=== PATIENT | female | born 1995 | race Hispanic/Latino ===

== ENCOUNTER 2021-12-11 23:25 | Emergency (ER) | payer BC, SELFPAY ==
[2021-12-12 00:08] LABS: #Eosinphils 0.1 10x3/uL (0.0-0.5); #Monocytes 0.7 10x3/uL (0.0-1.1); #Neutrophils 5.2 10x3/uL (1.5-8.4); %Basophils 0.4 % (0.0-2.0); %Eosinophils 1.2 % (0.0-6.0); %Monocytes 8.9 % (0.0-10.0); %Neutrophils 63.3 % (40.0-75.0); Hemoglobin 11.6 g/dL (12.0-15.5); Mean Corpuscular Hemoglobin 29.9 pg (27.0-33.0); Mean Corpuscular Volume 90.5 fl (81.6-98.3); Mean Platelet Volume 10.1 fl (7.4-10.4); Platelet Count 258 10x3/uL (150-450); RBC Distribution Width 12.6 % (11.5-14.5); Red Blood Cell (RBC) Count 3.88 10x6/uL (3.90-5.03); White Blood Cell (WBC) Count 8.3 10x3/uL (3.5-10.5)
[2021-12-12 00:13] LABS: ALT (SGPT) 8 U/L (8-55); AST (SGOT) 15 U/L (5-34); Albumin 4.3 g/dL (3.5-5.0); Alkaline Phosphatase 45 U/L (40-110); Anion Gap 11 mmol/L (10-20); BUN (Urea Nitrogen) 10 mg/dL (7.0-18.7); Bilirubin, Total 0.2 mg/dL (0.2-1.2); Calc. Creatinine Clearance 0 mL/min (70-130); Carbon Dioxide 25 mmol/L (22-29); Chloride 105 mmol/L (98-107); Estimated GFR 123; Globulin 3.1 g/dL (2.4-3.5); Glucose 65 mg/dL (70-105); Protein, Total 7.4 g/dL (6.0-8.3); Sodium 137 mmol/L (136-145)
[2021-12-12 01:37] LABS: Bilirubin Neg (Negative); Blood, Urine Negative (Negative); Clarity Clear (Clear); Glucose, Urine (Dipstick) Normal (Negative); Ketone, Urine Negative (Negative); Leukocyte 25 (Negative); Nitrite Negative (Negative); Protein, Urine (Dipstick) Negative (Neg-Trace); Urobilinogen Normal mg/dL (Less than 2)
[2021-12-12 01:57] LABS: Bacteria/HPF Rare-Few HPF (None Seen); RBC/HPF 0-3 HPF (0-3)
== END 2021-12-12 03:24 | disposition home or self-care (01) ==
LOC: CSHERS 23:25
DX: O99.891 Other specified diseases and conditions complicating pregnancy (principal); R10.2 Pelvic and perineal pain; Z3A.01 Less than 8 weeks gestation of pregnancy
CPT/HCPCS: 76856; 80053; 81003; 81015; 84702; 85025

== ENCOUNTER 2022-07-06 10:14 | Inpatient (IN) | payer BC ==
[2022-07-06] MEDS ORDERED: Penicillin G Potassium 5 MILL.UNITS VIAL ONE (11:30)
[2022-07-06] MEDS ORDERED: Carboprost 250 MCG/ML AMP IM PRN (11:36)
[2022-07-06] MEDS ORDERED: hydrALAZINE 20 MG/ML VIAL SLOW IVP PRN (11:36)
[2022-07-06] MEDS ORDERED: Butorphanol Tartrate 1 MG/ML VIAL SLOW IVP PRN (11:36)
[2022-07-06] MEDS ORDERED: HYDROcodone/Acetaminophen 5/325 mg Tablet PO PRN ×2 (11:36)
[2022-07-06] MEDS ORDERED: Misoprostol 200 MCG TAB PR PRN (11:36)
[2022-07-06] MEDS ORDERED: Diphenoxylate HCl/Atropine Tablet PO PRN ×2 (11:36)
[2022-07-06] MEDS ORDERED: Methylergonovine 0.2 MG/ML VIAL IM PRN (11:36)
[2022-07-06] MEDS ORDERED: Ondansetron PF 4 MG/2 ML Vial IVP PRN ×2 (11:36→14:31)
[2022-07-06] MEDS ORDERED: Tranexamic Acid 1,000 MG/10 ML VIAL IVP PRN (11:36)
[2022-07-06] MEDS ORDERED: Lidocaine 1% (PF) 30 ML VIAL SC PRN (11:36)
[2022-07-06] MEDS ORDERED: Promethazine HCl 25 MG/ML VIAL IM PRN ×2 (11:36→14:31)
[2022-07-06] MEDS ORDERED: Ibuprofen 800 MG TAB PO PRN (11:36)
[2022-07-06] MEDS ORDERED: Docusate 100 MG CAP PO PRN (11:36)
[2022-07-06] MEDS ORDERED: Acetaminophen 500 MG TAB PO PRN (11:36)
[2022-07-06] MEDS ORDERED: Penicillin G Potassium 5 MILL.UNITS in Sodium Chloride 0.9% 100 ML IVPB SCH (11:45)
[2022-07-06] MEDS ORDERED: Lactated Ringer's 1,000 ML IV SCH (11:45)
[2022-07-06] MEDS ORDERED: NS w/ Oxytocin 30 units 500 ML IV SCH ×3 (11:45)
[2022-07-06] MEDS ORDERED: fentaNYL 50 mcg/mL 1 mL Vial SLOW IVP PRN (11:48)
[2022-07-06 12:00] LABS: Hemoglobin 10.6 g/dL (12.0-15.5); Mean Corpuscular HGB CONC 31.8 g/dL (32.0-36.0); Mean Corpuscular Hemoglobin 27.6 pg (27.0-33.0); Mean Corpuscular Volume 86.7 fl (81.6-98.3); Mean Platelet Volume 10.7 fl (7.4-10.4); Platelet Count 226 10x3/uL (150-450); RBC Distribution Width 13.4 % (11.5-14.5); Red Blood Cell (RBC) Count 3.84 10x6/uL (3.90-5.03); White Blood Cell (WBC) Count 6.7 10x3/uL (3.5-10.5)
[2022-07-06 12:32] LABS: Syphilis Antibody Nonreactive (Nonreactive); Syphilis Antibody Index 0.06 S/CO (<1.00 Non-Reactive)
[2022-07-06 12:33] LABS: HBSAg Index 0.17 S/CO (0-0.99); Hep B Surf Ag - L&D Non-Reactive S/CO (NonReactive)
[2022-07-06] MEDS ORDERED: Fentanyl 2 mcg/Bup 0.1% Cadd 100 ML ONE (14:02)
[2022-07-06] MEDS ORDERED: Acetaminophen 325 MG TAB PO PRN (14:31)
[2022-07-06] MEDS ORDERED: Naloxone HCl 0.4 mg/ml Vial IVP PRN ×2 (14:31)
[2022-07-06] MEDS ORDERED: diphenhydrAMINE 50 MG/ML VIAL IVP PRN (14:31)
[2022-07-06] MEDS ORDERED: ePHEDrine Sulfate 50 MG/10 ML VIAL SLOW IVP PRN (14:31)
[2022-07-06] MEDS ORDERED: Moisturizing Cream (Eucerin) 113 GM JAR TOP PRN (14:31)
[2022-07-06] MEDS ORDERED: Lactated Ringer's 500 ML IV PRN (14:31)
[2022-07-06] MEDS ORDERED: Communication Order-Pharmacy FS SCH (14:45)
[2022-07-06] MEDS ORDERED: Fentanyl 2 mcg/Bupivacaine 0.1% Cassette 100 ML EPIDURAL SCH (14:45)
[2022-07-06] MEDS: Penicillin G 2.5 MILL.units 2.5 MILL.UNITS in Premix Bag 1 BAG IVPB SCH ×2 (16:24→20:12)
[2022-07-06] MEDS ORDERED: Bupivacaine/Epinephrine 0.25% 30 ML VIAL ONE (19:00)
[2022-07-06 20:45] VITALS: BMI 28.7
[2022-07-07] MEDS ORDERED: Promethazine HCl 25 MG/ML VIAL IM PRN (02:02)
[2022-07-07] MEDS ORDERED: Boostrix 0.5 ML (Tdap) VIAL (>/=7 yrs of age) IM ONE (02:02)
[2022-07-07] MEDS ORDERED: Preparation H Ointment 28 GM TUBE PR PRN (02:02)
[2022-07-07] MEDS ORDERED: HYDROcodone/Acetaminophen 5/325 mg Tablet PO PRN (02:02)
[2022-07-07] MEDS ORDERED: hydrALAZINE 20 MG/ML VIAL SLOW IVP PRN (02:02)
[2022-07-07] MEDS ORDERED: diphenhydrAMINE 25 MG CAP PO PRN (02:02)
[2022-07-07] MEDS ORDERED: Methylergonovine 0.2 MG TAB PO PRN (02:02)
[2022-07-07] MEDS ORDERED: Ondansetron PF 4 MG/2 ML Vial IVP PRN (02:02)
[2022-07-07] MEDS ORDERED: Lanolin Ointment 7 GM TUBE TOP PRN (02:02)
[2022-07-07] MEDS ORDERED: Misoprostol 200 MCG TAB VAG PRN (02:02)
[2022-07-07] MEDS ORDERED: Milk Of Magnesia 30 ML UDCUP PO PRN (02:02)
[2022-07-07] MEDS ORDERED: Bisacodyl 10 MG SUPP PR PRN (02:02)
[2022-07-07] MEDS ORDERED: Varicella virus, LIVE 0.5 ML VIAL SC ONE (02:02)
[2022-07-07] MEDS ORDERED: Measles/Mumps/Rubella 10 MCG/0.5 ML VIAL SC ONE (02:02)
[2022-07-07] MEDS ORDERED: Zolpidem Tartrate 5 MG TAB PO PRN (02:02)
[2022-07-07] MEDS ORDERED: Benzocaine-Menthol 82.5 ML CAN TOP PRN (02:02)
[2022-07-07] MEDS ORDERED: NS w/ Oxytocin 30 units 500 ML IV SCH (02:02)
[2022-07-07] MEDS: Ibuprofen 800 MG TAB PO SCH ×3 (03:07→22:13)
[2022-07-07 03:52] LABS: Hemoglobin 10.3 g/dL (12.0-15.5); Mean Corpuscular HGB CONC 31.5 g/dL (32.0-36.0); Mean Corpuscular Hemoglobin 27.3 pg (27.0-33.0); Mean Corpuscular Volume 86.7 fl (81.6-98.3); Mean Platelet Volume 9.6 fl (7.4-10.4); Platelet Count 219 10x3/uL (150-450); RBC Distribution Width 13.5 % (11.5-14.5); Red Blood Cell (RBC) Count 3.77 10x6/uL (3.90-5.03); White Blood Cell (WBC) Count 11.7 10x3/uL (3.5-10.5)
[2022-07-07] MEDS: Penicillin G 2.5 MILL.units 2.5 MILL.UNITS in Premix Bag 1 BAG IVPB SCH (07:22)
[2022-07-07] MEDS: Ferrous Sulfate 325 MG TAB PO SCH ×2 (07:23→16:45)
[2022-07-07] MEDS: HYDROcodone/Acetaminophen 5/325 mg Tablet PO PRN ×4 (07:31→22:43)
[2022-07-07] MEDS: Prenatal Vitamin 1 TAB PO SCH (07:31)
[2022-07-07] MEDS: Docusate 100 MG CAP PO SCH ×2 (07:31→22:13)
[2022-07-08] MEDS: Ibuprofen 800 MG TAB PO SCH ×2 (05:15→14:00)
[2022-07-08] MEDS: HYDROcodone/Acetaminophen 5/325 mg Tablet PO PRN (05:15)
[2022-07-08 07:36] VITALS: BP 118/74; TEMP 98.4
[2022-07-08] MEDS: Prenatal Vitamin 1 TAB PO SCH (08:28)
[2022-07-08] MEDS: Docusate 100 MG CAP PO SCH (08:28)
[2022-07-08 09:49] LABS: HIV (1/2) Antibody/Antigen Non-Reactive (NonReactive); HIV 1/2 INDEX 0.06 S/CO (<1.00)
[2022-07-08] MEDS: Ferrous Sulfate 325 MG TAB PO SCH (10:20)
== END 2022-07-08 15:00 | disposition home or self-care (01) | DRG 807 ==
LOC: CSHLD 10:14 → CSHPP 07-07 01:33
PROVIDERS: ADMIT Obstetrics & Gynecology; ATTEND Obstetrics & Gynecology
PROC: 10E0XZZ Delivery of Products of Conception, External Approach (ICD-10-PCS; principal; 2022-07-06)
PROC: 0UQMXZZ Repair Vulva, External Approach (ICD-10-PCS; 2022-07-06)
PROC: 0UQKXZZ Repair Hymen, External Approach (ICD-10-PCS; 2022-07-06)
DX: O60.14X0 Preterm labor third trimester with preterm delivery third trimester, not applicable or unspecified (principal); Z37.0 Single live birth; Z3A.36 36 weeks gestation of pregnancy; O71.82 Other specified trauma to perineum and vulva; O70.0 First degree perineal laceration during delivery
CPT/HCPCS: 36415; 85027; 86780; 86850; 86900; 86901; 87340; 87389; J2540